=== PATIENT | male | born 1950 | race Caucasian/White ===

== ENCOUNTER 2018-09-14 12:00 | Outpatient (REF) | payer MEDICARE, SELFPAY ==
[2018-09-15 15:20] LABS: Chlamydia Result Negative; GC Result Negative; Specimen Description URINE
== END 2018-09-14 12:20 ==
LOC: NCHCN 12:00
PROVIDERS: PCP Nurse Practitioner Family; Visit Provider Nurse Practitioner Family
DX: Z20.2 Contact with and (suspected) exposure to infections with a predominantly sexual mode of transmission (principal); Z11.3 Encounter for screening for infections with a predominantly sexual mode of transmission
CPT/HCPCS: 87491; 87591

== ENCOUNTER 2018-11-17 12:52 | Outpatient (REF) | payer MEDICARE, SELFPAY ==
[2018-11-17 19:54] LABS: Abs Immature Grans 0.01 k/cumm (0.0-0.09); Absolute Basophil Count 0.05 k/cumm (0.0-0.2); Absolute Eosinophil Count 0.13 k/cumm (0.0-0.7); Absolute Lymphocyte Count 2.64 k/cumm (1.2-3.4); Absolute Monocyte Count 0.47 k/cumm (0.11-0.7); Basophils % 0.8; HCT 36.3 % (40.0-50.0); HGB 12.9 g/dL (13.5-17.5); Immature Grans % 0.2; Lymphocytes % 41.3; Mean Corp. HGB Concentration 35.5 g/dL (32.0-36.0); Mean Platelet Volume 10.6 fL (8.0-11.0); Monocytes % 7.3; Neutrophils % 48.4; Platelet Count 221 x1000/uL (130-400); RBC 3.49 m/cumm (4.50-6.00)
[2018-11-17 20:32] LABS: ALT 24 U/L (12-78); AST 24 U/L (15-37); Albumin 3.8 g/dL (3.4-5.0); Alkaline Phosphatase 67 U/L (46-116); BUN 20 mg/dL (7-18); Bilirubin, Total 0.6 mg/dL (0.2-1.0); CREATININE 1.16 mg/dL (0.70-1.30); Chloride 105 mmol/L (98-107); Glucose 87 mg/dL (70-100); Potassium 5.1 mmol/L (3.5-5.1); Sodium 141 mmol/L (136-145); TSH (W/Ref FT4) 0.37 uIU/mL (0.358-3.74); Total Protein 7.3 g/dL (6.4-8.2); Vitamin B12 461 pg/mL (193-986)
[2018-11-21 12:48] LABS: Testosterone, Free 6.34 ng/dL (3.47-13.0); Testosterone, Total 488 ng/dL (240-950)
== END 2018-11-17 13:12 ==
LOC: NCHCN 12:52
PROVIDERS: PCP Nurse Practitioner Family; Visit Provider Nurse Practitioner Family
DX: F32.9 Major depressive disorder, single episode, unspecified (principal); F41.1 Generalized anxiety disorder; F15.20 Other stimulant dependence, uncomplicated; Z86.19 Personal history of other infectious and parasitic diseases; F52.21 Male erectile disorder
CPT/HCPCS: 80053; 84402; 84403; 82607; 84443; 85025

== ENCOUNTER 2018-12-28 16:34 | Outpatient (REF) | payer MEDICARE, SELFPAY ==
[2018-12-28 19:21] LABS: Iron 75 ug/dL (50-175); Total Iron Binding Capacity 270 ug/dL (250-450); Transferrin Sat 28 % (20-55)
== END 2018-12-28 16:54 ==
LOC: NCHCN 16:34
PROVIDERS: PCP Nurse Practitioner Family; Visit Provider Nurse Practitioner Family
DX: D64.9 Anemia, unspecified (principal)
CPT/HCPCS: 83540; 83550

== ENCOUNTER 2019-06-24 12:36 | Outpatient (REF) | payer MEDICARE, SELFPAY ==
[2019-06-24 15:33] LABS: Calculated LDL 98 mg/dL; Cholesterol 154 mg/dL (50-200); HDL Cholesterol 37 mg/dL (40-60); Triglyceride 96 mg/dL (30-150)
== END 2019-06-24 12:56 ==
LOC: NCHCN 12:36
PROVIDERS: PCP Nurse Practitioner Family; Visit Provider Nurse Practitioner Family
DX: E78.5 Hyperlipidemia, unspecified (principal)
CPT/HCPCS: 80061

== ENCOUNTER 2020-01-09 00:35 | Outpatient (CLI) | payer OTHER, SELFPAY ==
--- NOTE | 2020-01-09 | DI.CT_ITS ---
EXAM: CT CHEST W CLINICAL HISTORY: MULTIPLE LUNG NODULES, R91.8, TOBACCO USE DISORDER, F17.209 TECHNIQUE: Imaging Protocol: Axial computed tomography images with coronal and sagittal reformatted images were created and reviewed CONTRAST MATERIAL: Intravenous: Omnipaque 350 Contrast volume:70 mL. COMPARISON: CHEST WITHOUT CONTRAST from 05/12/2017 FINDINGS: Tracheobronchial tree: Patent where visualized. Mediastinum and Fely: There are mildly enlarged lymph nodes seen in the mediastinum, which do not ayala t the criteria for pathologically enlarged. Pulmonary parenchyma: There is dependent atelectasis. Emphysematous changes are present in the lungs . There are stable pulmonary nodules present. Some of the nodules are calcified. No new pulmonary nodules are present. No focal consolidating infiltrates are present. There is unchanged pleural thi ckening posteriorly. Pleura: No effusion or pneumothorax. Heart: The heart is not dilated. Moderate coronary artery calcifications are present. No pericardial effusion. Aorta: Ascending thoracic aortic aneurysm measuring 4.8 cm. Atherosclerosis. Upper abdomen: Unremarkable. Lymph nodes: Please see above Bones: Degenerative changes. IMPRESSION: 1. Stable pulmonary nodules. 2. Aneurysmal dilatation of the ascending thoracic aorta. 3. Emphysema. DATA REPOSITORY: All CT scans at this facility are submitted to the National Radiology Data Registry (NRDR) Dose Index Registry (DIR) with the [employer] (ACR). RADIATION OPTIMIZATION: All CT scans at this facility use at least one of these dose optimization te chniques: automated exposure control; mA and/or kV adjustment per patient size (includes targeted exa ms where dose is matched to clinical indication); or iterative reconstruction.
[2020-01-09] MEDS: Omnipaque 350 MG/ML 100 ML BTL IJ (14:20)
[2020-01-09] MEDS: Normal Saline - Diluent 50 ML VIAL IV (14:22)
== END 2020-01-09 00:55 ==
PROVIDERS: PCP Nurse Practitioner Family; Visit Provider Nurse Practitioner Family
DX: R91.8 Other nonspecific abnormal finding of lung field (principal); F17.200 Nicotine dependence, unspecified, uncomplicated; J43.9 Emphysema, unspecified; I71.4 Abdominal aortic aneurysm, without rupture
CPT/HCPCS: 71260; J3490

== ENCOUNTER 2020-01-25 00:43 | Outpatient (CLI) | payer OTHER, SELFPAY ==
--- NOTE | 2020-01-25 | DI.US_ITS ---
APPROVED REPORT EXAM: Comprehensive 2D, Doppler, and color-flow Echocardiogram Patient Location: Out-Patient Performance Makeup Artist: Lizbeth Webster RDCS (AE) Indications: Thoracic Aortic Aneurysm on CT Conclusion Normal left ventricular chamber size and wall thickness. Estimated ejection fraction is 55%. There are no segmental wall motion abnormalities There is no chamber enlargement Aortic valve is mildly sclerotic and trileaflet. There is no aortic stenosis. There is trace aortic regurgitation. Mitral and tricuspid valves are structurally normal. There is mild to moderate mitral regurgitation. There is mild tricuspid regurgitation. The pulmonic valve is not well visualized The aortic root is mildly dilated measuring 3.8 cm. The ascending aorta is mildly to moderately dila maria elena measuring 4.2 cm Wall motion Left Ventricle The left ventricle is normal size. Left ventricular systolic function is borderline. There is normal left ventricular wall thickness. Regional wall motion is grossly normal. The left ventricular diastol ic function is normal. There is no ventricular septal defect visualized. LVEF is 55%. Right Ventricle The right ventricle is normal size. The right ventricular systolic function is normal. Atria The left atrium size is normal. The right atrium size is normal. The interatrial septum is intact wit h no evidence for an atrial septal defect. Aortic Valve The Aortic valve is sclerotic. Aortic valve is trileaflet. There is no aortic valvular stenosis. Trac e aortic regurgitation. Mitral Valve The mitral valve is normal in structure. No evidence of mitral valve stenosis. Mild to moderate yong l regurgitation. Tricuspid Valve The tricuspid valve is normal in structure. There is no tricuspid valve stenosis. Mild tricuspid regu rgitation. Pulmonic Valve Pulmonic valve is not well visualized. There is no pulmonic valvular stenosis. There is no pulmonic v alvular regurgitation. Great Vessels Aortic root is mildly dilated.3.8 cm The ascending aorta is moderately dilated. The ascending aorta i s mildly dilated.4.2 cm IVC is normal in size and collapses >50% with inspiration. Pericardium There is no pericardial effusion. 2D Dimensions IVSD d PLAX 0.81 cm M: 0.6-1.2 LV Vol A2C d MOD 162.2 mL LVPW d PLAX 0.81 cm M: 0.6 - 1.2 LV Vol A4C d MOD 137.5 mL LVID d PLAX 5.18 cm M: 4.2 - 5.8 LA vol/ BSA A2C s A-L 35.7 mL/m2 LVDs 3.85 cm M: 2.5 - 4.0 LA vol/ BSA A4C s A-L 36.2 mL/m2 Ao Root d 3.96 cm M: 3.1 - 3.7 LA Vol/ BSA Biplane s A-L 38.3 mL/m2 RA Area A4C 16.91 cm2 LA Area A4C s MOD 21.92 cm2 RA Vol/ BSA A4C s A-L 25.4 mL/m2 LA Area A2C s MOD 20.44 cm2 Ao Asc Diam d 4.03 cm M: 2.6 - 3.4 LV EF A4C MOD 45.8 % LV EF Teichholz 49.7 % LV EF A2C MOD 49.4 % LVEF (Koroma's) 46.76 % M: 52 - 72 LV EF Biplane MOD 46.8 % LV Volume 111.84 mL M: 62 - 150 LV Volume Index 55.92 mL/m2 M: 34 - 74 LV Vol Biplane MOD 149.2 mL FS 25.35 % M-Mode TAPSE 2.41 cm (M/F) <1.7 LV Diastology MV E' medial 0.076 (>0.07 m/s) E/A Ratio 1.2 LV E/e MED 9.25 (<14) MV E Vmax 0.71 (0.4-1.3 m/s) MV E' lateral 0.090 (>0.1 m/s) MV A Vmax 0.60 (0.4-1.3 m/s) LV E/e LAT 7.85 (<14) MV E/A Ratio 1.15 MV E/E' medial 9.29 MV E/E' lateral 7.88 Aortic Valve LVOT Area 3.37 cm2 AoV Area Vmax 2.32 cm2 LVOT Vmax 0.99 m/s AoV Area/ BSA (Vmax) 1.16 cm2/m2 LVOT Mean Dev. 0.62 m/s REHANA Mean Dev. 2.17 cm2 LVOT Peak Grad 3.9 mmHg REHANA Mean Dev. Index 1.09 cm2/m2 LVOT Mean Grad 1.8 mmHg AR DT 2184 msec LVOT VTI 0.249 m AR PHT 633 msec LVOT Diam s 2.05 cm (M/F) 1.5-2.5 AoV Vmax 1.43 (0.5-1.3 m/s) Velocity Ratio 0.69 AoV Mean Dev. 0.96 m/s AoV Peak Grad 8.2 mmHg LVOT SV 83.95 mL AoV Mean Grad 4.1 (<5 mmHg) AoV VTI 0.310 (0.18-0.25 m) AoV Area VTI 2.71 (2.5-4.5 cm2) AoV Area/ BSA (VTI) 1.35 cm/m2 Mitral Valve MV DT 201 (160-240 msec) MR Vmax 4.99 m/s MV PHT 58 msec MR VTI 1.861 m MV Area PHT 3.77 cm2 MR Peak Grad 99.5 mmHg MR Mean Grad 77.6 mmHg MR PISA Radius 0.52 cm MR EROA 0.12 cm2 MR Aliasing Velocity 0.35 m/s MR PISA 1.69 cm2 Pulmonary Valve PV Vmax 0.85 (0.5-1.5 m/s) RVOT Peak Gr. 0.98 mmHg PV Peak Grad 2.9 mmHg RVOT Mean Gr. 0.60 mmHg PV Mean Grad 1.7 mmHg RVOT VTI 0.132 m PV VTI 0.208 m RVOT Vmax 0.50 m/s Tricuspid Valve TR Peak Grad 28.1 mmHg TR Vmax 2.65 m/s RA Pressure 3.00 mmHg RVSP (TR) 31.1 mmHg
== END 2020-01-25 01:03 ==
PROVIDERS: PCP Nurse Practitioner Family; Visit Provider Physician Assistant
DX: I71.2 Thoracic aortic aneurysm, without rupture (principal); I35.8 Other nonrheumatic aortic valve disorders; I34.0 Nonrheumatic mitral (valve) insufficiency
CPT/HCPCS: 93306

== ENCOUNTER → 2020-03-13 15:20 | Outpatient (BNVA) | payer OTHER, SELFPAY | PROVIDERS: PCP Nurse Practitioner Family; Referring Provider Nurse Practitioner Family; Visit Provider Internal Medicine Cardiovascular Disease | DX: I77.89 Other specified disorders of arteries and arterioles (principal); I25.10 Atherosclerotic heart disease of native coronary artery without angina pectoris; I10 Essential (primary) hypertension | CPT/HCPCS: 99204; 99443 ==

== ENCOUNTER 2020-05-08 08:28 | Outpatient (REF) | payer OTHER, SELFPAY ==
[2020-05-08 20:36] LABS: ALT 26 U/L (16-63); AST 22 U/L (15-37); Alkaline Phosphatase 72 U/L (46-116); Anion Gap 8.1 mmol/L (3-11); BUN 29 mg/dL (7-18); Bilirubin, Total 0.4 mg/dL (0.2-1.0); CO2 27.9 mmol/L (21.0-32.0); CREATININE 1.54 mg/dL (0.70-1.30); Calcium 9.2 mg/dL (8.5-10.1); Calculated LDL 89 mg/dL (<100); Chloride 104 mmol/L (98-107); Cholesterol 148 mg/dL (<200); Estimated GFR 45.01 (mL/min/1.73m2); Glucose 88 mg/dL (74-106); HDL Cholesterol 38 mg/dL (40-60); Potassium 5.1 mmol/L (3.5-5.1); Sodium 140 mmol/L (136-145); TSH 0.64 uIU/mL (0.36-3.74); Total Protein 7.5 g/dL (6.4-8.2); Triglyceride 106 mg/dL (<150)
[2020-05-08 20:45] LABS: HGB 12.8 g/dL (13.5-17.5); Mean Corpuscular Hemoglobin 33.7 pg (27.0-33.0); Mean Corpuscular Volume 105.3 fL (80-95); Platelet Count 244 x1000/uL (130-400); RBC Distribution Width 12.9 % (11.8-14.1); White Blood Cell Count 8.92 k/cumm (4.4-10.8)
[2020-05-10 09:10] LABS: PSA, Screening 0.6 ng/mL (0.0-4.5)
== END 2020-05-08 08:48 ==
LOC: NCHCN 08:28
PROVIDERS: PCP Nurse Practitioner Family; Visit Provider Physician Assistant
DX: I10 Essential (primary) hypertension (principal); E03.9 Hypothyroidism, unspecified; E78.5 Hyperlipidemia, unspecified; Z12.5 Encounter for screening for malignant neoplasm of prostate
CPT/HCPCS: 80053; 80061; 84153; 85027; 84443

== ENCOUNTER 2020-09-12 13:47 | Outpatient (CLI) | payer OTHER, SELFPAY ==
--- NOTE | 2020-09-12 10:34 | DI.US_ITS ---
APPROVED REPORT EXAM: Comprehensive 2D, Doppler, and color-flow Echocardiogram Patient Location: Out-Patient Diamond Cleaner: Lizbeth Webster RDCS (AE) Indications: HTN, Thoracic aortic aneurysm Other Information Study Quality: Adequate Conclusion Normal left ventricular wall thickness and chamber size. Estimated ejection fraction is 55 to 60%. There are no segmental wall motion abnormalities Normal right ventricular size and systolic function Both atria are normal in size There are no structural valvular abnormalities Trace pulmonic and aortic regurgitation Mild mitral and tricuspid regurgitation. Normal estimated right ventricular systolic pressure Mildly dilated ascending aorta measuring 4.36 cm Wall motion Left Ventricle The left ventricle is normal size. The left ventricular systolic function is normal. The left ventric ular ejection fraction is within the normal range. There is normal left ventricular wall thickness. T here is normal LV segmental wall motion. There is no ventricular septal defect visualized. LVEF is 55 %. Right Ventricle The right ventricle is normal size. The right ventricular systolic function is normal. The RVSP is 29 .9mmHg. Atria The left atrium size is normal. The right atrium size is normal. The interatrial septum is intact wit h no evidence for an atrial septal defect. Aortic Valve The aortic valve is normal in structure. Aortic valve is trileaflet. There is no aortic valvular sten osis. Trivial aortic regurgitation. Mitral Valve The mitral valve is normal in structure. No evidence of mitral valve stenosis. Mild mitral regurgitat ion. Tricuspid Valve The tricuspid valve is normal in structure. There is no tricuspid valve stenosis. Mild tricuspid regu rgitation. Pulmonic Valve The pulmonary valve is normal in structure. There is no pulmonic valvular stenosis. Trace pulmonic re gurgitation. Great Vessels The aortic root is normal in size. The ascending aorta is moderately dilated. Aortic arch is normal i n caliber. IVC is normal in size and collapses >50% with inspiration. Pericardium There is no pericardial effusion. 2D Dimensions IVSD d PLAX 0.89 cm M: 0.6-1.2 LV Vol A2C d MOD 125.8 mL LVPW d PLAX 0.89 cm M: 0.6 - 1.2 LV Vol A4C d MOD 165.7 mL LVID d PLAX 5.02 cm M: 4.2 - 5.8 LA vol/ BSA A2C s A-L 33.1 mL/m2 LVDs 3.60 cm M: 2.5 - 4.0 LA vol/ BSA A4C s A-L 28.9 mL/m2 Ao Root d 3.94 cm M: 3.1 - 3.7 LA Vol/ BSA Biplane s A-L 31.5 mL/m2 RA Area A4C 12.86 cm2 LA Area A4C s MOD 19.17 cm2 RA Vol/ BSA A4C s A-L 15.1 mL/m2 LA Area A2C s MOD 20.12 cm2 Ao Asc Diam d 4.36 cm M: 2.6 - 3.4 LV EF A4C MOD 55.7 % LV EF Teichholz 54.4 % LV EF A2C MOD 55.1 % LVEF (Koroma's) 54.48 % M: 52 - 72 LV EF Biplane MOD 54.5 % LV Volume 108.66 mL M: 62 - 150 SV 78.83 mL LV Volume Index 54.60 mL/m2 M: 34 - 74 SV Index 39.56 mL/m2 LV Vol Biplane MOD 144.7 mL FS 28.30 % M-Mode TAPSE 2.32 cm (M/F) >1.7 LV Diastology MV E' medial 0.069 (>0.07 m/s) E/A Ratio 1.2 LV E/e MED 10.35 (<14) MV E Vmax 0.72 (0.4-1.3 m/s) MV E' lateral 0.101 (>0.1 m/s) MV A Vmax 0.60 (0.4-1.3 m/s) LV E/e LAT 7.15 (<14) MV E/A Ratio 1.13 MV E/E' medial 10.39 MV E/E' lateral 7.16 Aortic Valve LVOT Area 3.23 cm2 AoV Area Vmax 2.29 cm2 LVOT Vmax 1.01 m/s AoV Area/ BSA (Vmax) 1.15 cm2/m2 LVOT Mean Dev. 0.60 m/s REHANA Mean Dve. 2.05 cm2 LVOT Peak Grad 4.1 mmHg REHANA Mean Dev. Index 1.03 cm2/m2 LVOT Mean Grad 1.8 mmHg LVOT VTI 0.231 m LVOT Diam s 2.00 cm AoV Vmax 1.42 m/s Velocity Ratio 0.71 AoV Mean Dev. 0.95 m/s AoV Peak Grad 8.0 mmHg LVOT SV 74.52 mL AoV Mean Grad 4.1 mmHg AoV VTI 0.295 m AoV Area VTI 2.53 cm2 AoV Area/ BSA (VTI) 1.27 cm/m2 Mitral Valve MV DT 259 (160-240 msec) MV PHT 75 msec MV Area PHT 2.93 cm2 MV VTI 0.205 m MV Area VTI 3.64 (4.0-6.0 cm2) Pulmonary Valve PV Vmax 0.99 (0.5-1.5 m/s) RVOT Peak Gr. 1.31 mmHg PV Peak Grad 4.0 mmHg RVOT Mean Gr. 0.75 mmHg PV Mean Grad 2.2 mmHg RVOT VTI 0.150 m PV VTI 0.238 m RVOT Vmax 0.57 m/s Tricuspid Valve TR Peak Grad 26.8 mmHg TR Vmax 2.59 m/s RA Pressure 3.00 mmHg RVSP (TR) 29.9 mmHg
== END 2020-09-12 14:07 ==
PROVIDERS: PCP Nurse Practitioner Family; Visit Provider Physician Assistant
DX: I08.1 Rheumatic disorders of both mitral and tricuspid valves (principal)
CPT/HCPCS: 93306

== ENCOUNTER 2020-09-18 11:14 | Outpatient (REF) | payer OTHER, SELFPAY ==
[2020-09-18 19:42] LABS: Anion Gap 5.6 mmol/L (3-11); BUN 28 mg/dL (7-18); CO2 29.4 mmol/L (21.0-32.0); CREATININE 1.75 mg/dL (0.70-1.30); Calcium 9.5 mg/dL (8.5-10.1); Chloride 101 mmol/L (98-107); Estimated GFR 38.84 (mL/min/1.73m2); Glucose 90 mg/dL (74-106); Potassium 4.9 mmol/L (3.5-5.1); Sodium 136 mmol/L (136-145)
== END 2020-09-18 11:34 ==
LOC: NCHCN 11:14
PROVIDERS: PCP Nurse Practitioner Family; Visit Provider Physician Assistant
DX: I10 Essential (primary) hypertension (principal)
CPT/HCPCS: 80048

== ENCOUNTER 2020-10-15 21:17 | Outpatient (REF) | payer OTHER, SELFPAY ==
[2020-10-15 14:06] LABS: Anion Gap 7.8 mmol/L (3-11); BUN 25 mg/dL (7-18); CO2 28.2 mmol/L (21.0-32.0); CREATININE 1.71 mg/dL (0.70-1.30); Calcium 9.3 mg/dL (8.5-10.1); Chloride 102 mmol/L (98-107); Estimated GFR 39.89 (mL/min/1.73m2); Glucose 91 mg/dL (74-106); Potassium 4.7 mmol/L (3.5-5.1); Sodium 138 mmol/L (136-145)
[2020-10-16 09:53] LABS: HIV-1/2 Ag & Ab Screen Negative (Negative)
== END 2020-10-15 21:37 ==
LOC: NCHCN 21:17
PROVIDERS: PCP Nurse Practitioner Family; Visit Provider Physician Assistant
DX: N28.9 Disorder of kidney and ureter, unspecified (principal); Z11.4 Encounter for screening for human immunodeficiency virus [HIV]; Z11.3 Encounter for screening for infections with a predominantly sexual mode of transmission
CPT/HCPCS: 80048; 87389

== ENCOUNTER 2020-11-02 04:40 | Outpatient (CLI) | payer OTHER, SELFPAY ==
--- NOTE | 2020-11-02 | DI.US_ITS ---
EXAM: US RENAL CLINICAL HISTORY: RENAL INSUFFICIENCY, N28.9. TECHNIQUE: Arnold scale, color and spectral Doppler were used. COMPARISON: CT CT CHEST W from 01/09/2020 FINDINGS: Renal size in cm: Right: 10.7. Left: 10.6. Echogenicity: Normal. Hydronephrosis: No. Cyst or mass: No. Nephrolithiasis: No. Other findings: No findings to suggest renal cortical atrophy. Bladder:Incompletely distended. There is apparent thickening of the wall of the urinary bladder. Th is may be due to incomplete distension of the urinary bladder. Ureteral jets: Right: Visualized and unremarkable. Left: Visualized and unremarkable. Prevoid vol:10.5 cc Postvoid vol:2.4 cc Prostate: 22 cc Renal color flow: Symmetric and within normal limits. IMPRESSION: 1. Unremarkable kidneys. No evidence of hydronephrosis or renal mass. 2. Evaluation of the urinary bladder is severely limited due to lack of distension. The apparent thi ckening of the wall of the urinary bladder may be due to the incomplete distention. If there is clin ical concern for bladder abnormality, repeat examination with a fully distended bladder should be con sidered. DATA REPOSITORY:
== END 2020-11-02 05:00 ==
PROVIDERS: PCP Physician Assistant; Visit Provider Physician Assistant
DX: N28.89 Other specified disorders of kidney and ureter (principal)
CPT/HCPCS: 76770

== ENCOUNTER 2021-01-15 19:56 | Outpatient (REF) | payer OTHER, SELFPAY ==
[2021-01-15 19:59] LABS: Anion Gap 9.8 mmol/L (3-11); BUN 31 mg/dL (7-18); CO2 26.2 mmol/L (21.0-32.0); CREATININE 1.6 mg/dL (0.70-1.30); Calcium 9.7 mg/dL (8.5-10.1); Chloride 102 mmol/L (98-107); Estimated GFR 43.07 (mL/min/1.73m2); Glucose 95 mg/dL (74-106); Potassium 5.8 mmol/L (3.5-5.1); Sodium 138 mmol/L (136-145)
== END 2021-01-15 19:57 | disposition home or self-care (01) ==
LOC: NCHCN 19:56
PROVIDERS: PCP Physician Assistant; Visit Provider Physician Assistant
DX: N28.9 Disorder of kidney and ureter, unspecified (principal)
CPT/HCPCS: 80048

== ENCOUNTER 2021-07-11 10:07 | Outpatient (REF) | payer OTHER, SELFPAY ==
[2021-07-11 14:33] LABS: BUN 19 mg/dL (7-18); CREATININE 1.6 mg/dL (0.70-1.30); Calcium 9.1 mg/dL (8.5-10.1); Chloride 106 mmol/L (98-107); Estimated GFR 42.95 (mL/min/1.73m2); Glucose 106 mg/dL (74-106); Potassium 5.1 mmol/L (3.5-5.1); Sodium 142 mmol/L (136-145); TSH (W/Ref FT4) 67.92 uIU/mL (0.36-3.74)
[2021-07-11 14:58] LABS: FREE T4 0.28 ng/dL (0.76-1.46)
== END 2021-07-11 10:08 | disposition home or self-care (01) ==
LOC: NCHCN 10:07
PROVIDERS: PCP Physician Assistant; Referring Provider Physician Assistant; Visit Provider Physician Assistant
DX: E03.9 Hypothyroidism, unspecified (principal); I10 Essential (primary) hypertension
CPT/HCPCS: 80048; 84439; 84443

== ENCOUNTER → 2021-08-15 02:01 | Outpatient (CLI) | payer OTHER, SELFPAY ==
--- NOTE | 2021-08-15 | DI.CTLCSR_ITS ---
Exam(s) CT CHEST LUNG CANCER SCREEN EXAM: CT CHEST LUNG CANCER SCREEN CLINICAL HISTORY: SCREENING FOR LUNG SCREENING, SMOKER, F17.209. TECHNIQUE: Imaging Protocol: Low Dose Technique CONTRAST MATERIAL: None COMPARISON: CT CHEST WITHOUT CONTRAST from 05/12/[address] CHEST W from 01/09/2020 FINDINGS: CHEST: LUNGS: The previously described multiple bilateral pulmonary nodules, both calcified and noncalcified , continue to appear unchanged and there are no new ominous pulmonary nodules nor pleural effusions. In addition, multilevel pleural thickening posteriorly is also unchanged. Emphysematous changes at 12 pulmonary fibrosis again noted. MEDIASTINUM: Minimally prominent mediastinal lymph nodes are unchanged from prior. No new lymphadeno joan. CARDIAC: Heart size is normal. There is no pericardial effusion.Dilated ascending thoracic aorta is again noted which exhibits diameter 4.4 cm, unchanged OTHER: OSSEOUS: No new significant osseous lesions.. IMPRESSION: 1. Continued stability of the multiple bilateral calcified and noncalcified pulmonary nodules. No ne w nodules nor pleural effusions nor new intrathoracic adenopathy. Pulmonary fibrosis and emphysematous changes again noted 2. Aneurysmal dilatation of the ascending thoracic aorta again noted, measuring 4.4 cm. 3. Lung RADS Cat 2 - Benign Appearance / Behavior: Nodules with a very low likelihood of becoming a c linically active cancer due to size or lack of growth Lung-RADS 1.0 CATEGORIES: Category 0 - Prior chest CT exam(s) being located for comparison. Category 1 - Annual screening in 12 months. No nodules or definitely benign nodules. Category 2 - Annual screening in 12 months. Benign appearance. Nodules with low likelihood of becomin g active cancer. Category 3 - 6-month follow-up. Probably benign. Short-term follow-up suggested. Nodules with low lik elihood of becoming active cancer. Category 4A - 3-month follow-up and CT/PET if >8 mm in size. Suspicious finding. Findings which requi re additional testing. Category 4B - Findings which require additional testing and tissue sampling. Modifier S- Potentially clinically significant findings (non lung cancer) RADIATION DOSE DELIVERED: 82.79mGy.cm Total DLP 1.84mGy CTDIvol DATA REPOSITORY: All CT scans at this facility are submitted to the National Radiology Data Registry (NRDR) Dose Index Registry (DIR) with the [employer] (ACR). RADIATION OPTIMIZATION: All CT scans at this facility use at least one of these dose optimization te chniques: automated exposure control; mA and/or kV adjustment per patient size (includes targeted exa ms where dose is matched to clinical indication); or iterative reconstruction.
--- NOTE | 2021-08-15 | DI.US_ITS ---
APPROVED REPORT EXAM: Comprehensive 2D, Doppler, and color-flow Echocardiogram Patient Location: Out-Patient [employer] Managing Editor: Lizbeth Webster RDCS (AE) Indications: Thoracic aortic aneurysm Other Information Study Quality: Adequate Conclusion Normal left ventricular wall thickness and chamber size. Estimated ejection fraction is 55 to 60%. There are no segmental wall motion abnormalities Normal right ventricular size and systolic function Both atria are normal in size Trileaflet aortic valve without stenosis or regurgitation Mildly thickened mitral leaflets with mild regurgitation Normal tricuspid valve with mild regurgitation. Estimated right ventricular systolic pressure is 28 mmHg Mildly dilated aortic root, 3.9 cm. Moderately dilated ascending aorta, 4.29 cm Wall motion Left Ventricle The left ventricle is normal size. The left ventricular systolic function is normal. The left ventric ular ejection fraction is within the normal range. There is normal left ventricular wall thickness. T here is normal LV segmental wall motion. There is no ventricular septal defect visualized. LVEF is 58 %. Right Ventricle The right ventricle is normal size. The right ventricular systolic function is normal. The RVSP is 28 .1 mmHg. Atria The left atrium size is normal. The right atrium size is normal. The interatrial septum is intact wit h no evidence for an atrial septal defect. Aortic Valve The aortic valve is normal in structure. Aortic valve is trileaflet. There is no aortic valvular sten osis. No aortic regurgitation is present. Mitral Valve Mitral valve leaflets are mildly thickened. No evidence of mitral valve stenosis. Mild mitral regurgi tation. Tricuspid Valve The tricuspid valve is normal in structure. There is no tricuspid valve stenosis. Mild tricuspid regu rgitation. Pulmonic Valve The pulmonary valve is normal in structure. There is no pulmonic valvular stenosis. Trace pulmonic re gurgitation. Great Vessels Aortic root is mildly dilated.3.9 cm The ascending aorta is moderately dilated.4.29 cm Aortic arch is normal in caliber. IVC is normal in size and collapses >50% with inspiration. Pericardium There is no pericardial effusion. 2D Dimensions IVSD d PLAX 1.04 cm M: 0.6-1.2 LV Vol A2C d MOD 131.1 mL LVPW d PLAX 1.02 cm M: 0.6 - 1.2 LV Vol A4C d MOD 136.8 mL LVID d PLAX 4.91 cm M: 4.2 - 5.8 LA vol/ BSA A2C s A-L 35.7 mL/m2 LVDs 3.50 cm M: 2.5 - 4.0 LA vol/ BSA A4C s A-L 33.8 mL/m2 Ao Root d 3.90 cm M: 3.1 - 3.7 LA Vol/ BSA Biplane s A-L 35.1 mL/m2 RA Area A4C 13.66 cm2 LA Area A4C s MOD 20.39 cm2 RA Vol/ BSA A4C s A-L 17.1 mL/m2 LA Area A2C s MOD 21.14 cm2 Ao Asc Diam d 4.29 cm M: 2.6 - 3.4 LV EF A4C MOD 56.4 % LV EF Teichholz 54.5 % LV EF A2C MOD 59.0 % LVEF (Koroma's) 57.33 % M: 52 - 72 LV EF Biplane MOD 57.3 % LV Volume 100.65 mL M: 62 - 150 SV 76.84 mL LV Volume Index 50.57 mL/m2 M: 34 - 74 SV Index 38.56 mL/m2 LV Vol Biplane MOD 134.0 mL FS 28.30 % M-Mode TAPSE 2.48 cm (M/F) >1.7 LV Diastology MV E' medial 0.087 (>0.07 m/s) E/A Ratio 1.2 LV E/e MED 10.05 (<14) MV E Vmax 0.87 (0.4-1.3 m/s) MV E' lateral 0.110 (>0.1 m/s) MV A Vmax 0.70 (0.4-1.3 m/s) LV E/e LAT 7.90 (<14) MV E/A Ratio 1.19 MV E/E' medial 10.07 MV E/E' lateral 7.94 Aortic Valve LVOT Area 3.66 cm2 AoV Area Vmax 2.69 cm2 LVOT Vmax 1.03 m/s AoV Area/ BSA (Vmax) 1.35 cm2/m2 LVOT Mean Dev. 0.60 m/s REHANA Mean Dev. 2.46 cm2 LVOT Peak Grad 4.2 mmHg REHANA Mean Dev. Index 1.23 cm2/m2 LVOT Mean Grad 1.8 mmHg LVOT VTI 0.219 m LVOT Diam s 2.15 cm AoV Vmax 1.40 m/s Velocity Ratio 0.73 AoV Mean Dev. 0.89 m/s AoV Peak Grad 7.8 mmHg LVOT SV 80.00 mL AoV Mean Grad 3.7 mmHg AoV VTI 0.291 m AoV Area VTI 2.75 cm2 AoV Area/ BSA (VTI) 1.38 cm/m2 Mitral Valve MV DT 191 (160-240 msec) MV PHT 55 msec MV Area PHT 3.98 cm2 MV VTI 0.385 m MV Area VTI 2.08 (4.0-6.0 cm2) Pulmonary Valve PV Vmax 1.13 (0.5-1.5 m/s) RVOT Peak Gr. 2.15 mmHg PV Peak Grad 5.1 mmHg RVOT Mean Gr. 1.15 mmHg PV Mean Grad 2.4 mmHg RVOT VTI 0.180 m PV VTI 0.233 m RVOT Vmax 0.73 m/s Tricuspid Valve TR Peak Grad 25.1 mmHg TR Vmax 2.51 m/s RA Pressure 3.00 mmHg RVSP (TR) 28.1 mmHg
== END ==
PROVIDERS: PCP Physician Assistant; Visit Provider Physician Assistant
DX: I08.1 Rheumatic disorders of both mitral and tricuspid valves (principal); I71.2 Thoracic aortic aneurysm, without rupture; Z12.2 Encounter for screening for malignant neoplasm of respiratory organs; F17.210 Nicotine dependence, cigarettes, uncomplicated; R91.8 Other nonspecific abnormal finding of lung field; J84.10 Pulmonary fibrosis, unspecified
CPT/HCPCS: 71271; 93306

== ENCOUNTER 2021-11-19 15:21 | Outpatient (REF) | payer OTHER, SELFPAY ==
[2021-11-19 17:15] LABS: ALT 23 U/L (16-63); AST 28 U/L (15-37); Albumin 4.2 g/dL (3.4-5.0); Alkaline Phosphatase 54 U/L (46-116); Anion Gap 10.1 mmol/L (3-11); BUN 30 mg/dL (7-18); Bilirubin, Total 0.7 mg/dL (0.2-1.0); CO2 25.9 mmol/L (21.0-32.0); CREATININE 1.4 mg/dL (0.70-1.30); Calcium 8.7 mg/dL (8.5-10.1); Chloride 101 mmol/L (98-107); Glucose 84 mg/dL (74-106); Potassium 4.8 mmol/L (3.5-5.1); Sodium 137 mmol/L (136-145); TSH 14.79 uIU/mL (0.36-3.74); Total Protein 7.5 g/dL (6.4-8.2)
== END 2021-11-19 15:22 | disposition home or self-care (01) ==
LOC: NCHCN 15:21
PROVIDERS: PCP Physician Assistant; Visit Provider Physician Assistant
DX: I10 Essential (primary) hypertension (principal); E03.9 Hypothyroidism, unspecified
CPT/HCPCS: 80053; 84443

== ENCOUNTER 2022-06-06 09:18 | Outpatient (REF) | payer MEDICARE, SELFPAY ==
[2022-06-06 15:45] LABS: ALT 18 U/L (16-63); AST 19 U/L (15-37); Albumin 3.8 g/dL (3.4-5.0); Alkaline Phosphatase 57 U/L (46-116); Anion Gap 7.3 mmol/L (3-11); BUN 19 mg/dL (7-18); Bilirubin, Total 0.3 mg/dL (0.2-1.0); CO2 28.7 mmol/L (21.0-32.0); CREATININE 1.3 mg/dL (0.70-1.30); Calculated LDL 80 mg/dL (<100); Chloride 104 mmol/L (98-107); Cholesterol 146 mg/dL (<200); Estimated GFR 54.42 (mL/min/1.73m2); Glucose 101 mg/dL (74-106); HDL Cholesterol 54 mg/dL (40-60); Potassium 4.9 mmol/L (3.5-5.1); Sodium 140 mmol/L (136-145); TSH 0.73 uIU/mL (0.36-3.74); Total Protein 7.5 g/dL (6.4-8.2); Triglyceride 60 mg/dL (<150)
[2022-06-06 16:04] LABS: HCT 38.2 % (40.0-50.0); HGB 12.1 g/dL (13.5-17.5); MCH 32.4 pg (27.0-33.0); MCV 102 fL (80-95); MPV 10.2 fL (8.0-11.0); Platelet Count 251 10^3/uL (130-400); RBC 3.74 10^6/uL (4.36-5.78); RDW 12.5 % (11.8-14.1); RDW-SD 47.1 fL; WBC 6.83 10^3/uL (4.4-10.8)
[2022-06-06 16:13] LABS: MCHC 31.7 % (32.0-36.0)
== END 2022-06-06 09:19 | disposition home or self-care (01) ==
LOC: NCHCN 09:18
PROVIDERS: PCP Physician Assistant; Visit Provider Physician Assistant
DX: E03.9 Hypothyroidism, unspecified (principal)
CPT/HCPCS: 80053; 80061; 85027; 84443

== ENCOUNTER → 2022-06-25 09:02 | Outpatient (BNVA) | payer MEDICARE, SELFPAY | PROVIDERS: PCP Physician Assistant; Referring Provider Physician Assistant; Visit Provider Surgery | DX: Z12.11 Encounter for screening for malignant neoplasm of colon (principal) ==

== ENCOUNTER 2022-07-10 08:27 | Day surgery (SDC) | payer MEDICARE, SELFPAY ==
--- NOTE | 2022-07-10 06:58 | ANES.PREOP_ITS ---
General Info Date of Service Date Performed: 07/10/22 Height: 5 ft 11 in Weight: 80.456 kg Body Mass Index (BMI): 24.7 Surgical Procedure: Operation Date: 07/10/22 10:35 Proposed Procedure Side Surgeon shila Hernandez MD Meds Allergies and Home Medications Allergies Allergy/AdvReac Type Severity Reaction Status Date / Time chloramphenicol Allergy Severe anaphylaxis Unverified 07/10/22 09:52 [From Chloromycetin] chloramphenicol sod succ Allergy Severe anaphylaxis Unverified 07/10/22 09:52 [From Chloromycetin] simvastatin AdvReac Severe myalgias Unverified 07/10/22 09:52 Home Medication Medication Instructions Recorded aspirin 325 mg tablet 325 mg PO DAILY 08/10/14 levothyroxine 150 mcg tablet 150 mcg PO DAILY 08/10/14 lisinopril 20 mg tablet 20 mg PO DAILY 08/10/14 mirtazapine 15 mg disintegrating 15 mg PO DAILY 08/10/14 tablet pregabalin 25 mg capsule (Lyrica) 25 mg PO BID 08/10/14 cholecalciferol (vitamin D3) 50 4,000 - 6,000 unit PO DAILY 08/19/14 mcg (2,000 unit) tablet ibuprofen 200 mg tablet 800 mg PO TID 08/19/14 multivitamin (Daily Vitamin tablet) 1 ea PO DAILY 08/19/14 duloxetine 30 mg capsule,delayed 90 mg PO DAILY 03/13/20 release amlodipine 10 mg tablet 10 mg PO DAILY 05/28/22 atorvastatin 10 mg tablet 10 mg PO QHS 05/28/22 methylphenidate HCl 20 mg tablet 20 mg PO BID 05/28/22 metoprolol succinate 50 mg 50 mg PO DAILY 05/28/22 tablet,extended release 24 hr tamsulosin 0.4 mg capsule (Flomax) 0.4 mg PO BID 05/28/22 tadalafil 5 mg tablet (Cialis) 5 mg PO DAILY 06/25/22 Current Visit Medications: Current Medications Generic Name Dose Route Start Last Admin Trade Name Freq PRN Reason Stop Dose Admin Ringer's Solution 1,000 mls @ 80 mls/hr 07/10/22 06:00 IV 08/08/22 23:59 [facility] IV Miscellaneous Supplies 1 each 07/10/22 06:00 Iv Access IV 08/08/22 23:59 DIRECTED DOLORES Sodium Chloride 0 ml 07/10/22 06:00 Normal Saline Flush 10 Ml Syr IV 08/08/22 23:59 PRN PRN Sodium Chloride 0 ml 07/10/22 06:00 Normal Saline 10 Ml Vial IJ 08/08/22 23:59 DIRECTED PRN Sterile Water 0 ml 07/10/22 06:00 Water,Injection,Sterile 10 Ml Vial IJ 08/08/22 23:59 DIRECTED PRN PFSH Active Problems Active Problems: Problem Status Onset Code CAD (coronary atherosclerotic disease) MO (myocardial infarction) Enlarged aorta I77.89 Screening for colon cancer Z12.11 Medical History Medical History Depression History of MO (myocardial infarction) 1999 Hyperlipidemia Hypertension Hypothyroidism Shingles Surgical History Surgical History Appendectomy Arthroplasty of knee pt. denies Colonoscopy - IV Sedation Coronary Stent x2 1999 & 2011. Per pt. f/u with cardiology but is no longer required to and f/u with PCP Dr. Astorga Tobacco Smoking/Tobacco Use Status: Current every day Tobacco Type: cigarettes Alcohol Alcohol Intake: current Alcohol intake frequency: 0-2 drinks per day Substance Use Substance use: Occasionally Substance use type: marijuana Vital Signs and Lab Results Lab Results Blood Type / Crossmatch: No Data to Display Complete Blood Count: No Data to Display Complete Metabolic Panel: No Data to Display Liver Function Panel: No Data to Display Coagulation Panel: No Data to Display Cardiac Panel: No Data to Display Arterial Blood Gas: No Data to Display Venous Blood Gas: No Data to Display Pancreas Panel: No Data to Display Thyroid Panel: No Data to Display Infectious Disease: No Data to Display Blood Cultures: No Data to Display Toxicology Panel: No Data to Display Anesthesia Assessment and Plan Anesthesia History Personal History: No History of Anesthesia Complications Family History: No Family History of Anesthesia Complications Exercise Tolerance Exercise Tolerance: Metabolic Equivalents>4 Pertinent Negatives Pertinent Negatives: No Symptoms of GERD, No Major Cardiovascular Symptoms or Complaints, No Major Pulmonary Symptoms or Complaints and No History of CVA/TIA Cardiac & Pulmonary Exam Cardiac Exam: Normal S1/S2 Heart Sounds Pulmonary Exam: Clear Bilateral Breath Sounds Implantable Cardiac Device Does patient have a Pacemaker or an ICD?: No Airway Exam Known Difficult Airway: No Mallampati Class: 4 Mouth Opening: Normal (> 3cm) Thyromental Distance: Greater than 3 cm Neck Range of Motion: Full ROM Neck Circumference: Normal Teeth Condition: Generalized Poor Dentition and Removable Dentures/Plates Upper ASA Classification ASA Score: ASA 2 Emergency Case?: No NPO Status NPO Status: NPO Clears >2 hours, Solids >8 hours Anesthesia Plan Resuscitation Status: Full Code Anesthesia Technique: General Anesthesia Airway Planned: Natural Airway Monitors Used: Standard Monitors Preoperative Comments:: Violation of NPO - per patient 2 oz at 0900. Juli. Discussed risk and continuing.
--- NOTE | 2022-07-10 08:35 | W.PM.DSUDISC ---
Discharge Plan Disposition Patient Disposition: HOME Condition: Good Discharge Details Attending Provider: Jim Hernandez Primary Care Provider: Mahad Astorga Home Meds and New Rx's Prescriptions: Continued duloxetine 30 mg capsule,delayed release(DR/EC) 90 mg PO DAILY tadalafil [Cialis] 5 mg tablet 5 mg PO DAILY aspirin 325 MG tablet 325 mg PO DAILY lisinopril 20 MG tablet 20 mg PO DAILY levothyroxine 150 MCG tablet 150 mcg PO DAILY mirtazapine 15 MG tablet,disintegrating 15 mg PO DAILY pregabalin [Lyrica] 25 MG capsule 25 mg PO BID multivitamin [Daily Vitamin] 1 EACH tablet 1 ea PO DAILY ibuprofen 200 MG tablet 800 mg PO TID cholecalciferol (vitamin D3) 2,000 UNIT tablet 4,000 - 6,000 unit PO DAILY metoprolol succinate 50 mg tablet extended release 24 hr 50 mg PO DAILY tamsulosin [Flomax] 0.4 mg capsule 0.4 mg PO BID atorvastatin 10 mg tablet 10 mg PO QHS methylphenidate HCl 20 mg tablet 20 mg PO BID amlodipine 10 mg tablet 10 mg PO DAILY Discontinued bisacodyl [Dulcolax (bisacodyl)] 5 mg tablet,delayed release (DR/EC) 5 mg PO ONCE Qty: 4 0RF Rx Instructions: Take according to provider's instructions for colonoscopy prep. polyethylene glycol 3350 17 gram/dose powder 17 g PO ONCE Qty: 238 0RF Rx Instructions: To be taken as directed by prescriber's office for colonoscopy prep. Discharge Instructions Instructions: Colonoscopy (DC) Additional Instructions: 1. If tolerated, consume a soft, low fiber diet for 1-2 days. [address] Do not drive, drink alcohol, operate machinery, make critical decisions, or do activities that require coordination or balance for 24 hours. 3. Because air was put into your colon during the procedure, expelling air from your rectum (passing gas or farting) is normal. 4. You may not have a bowel movement for 1-3 days because of the colonoscopy prep. This is normal. 5. Go directly to the emergency room if you notice any of the following: Develop chills (warm to touch), or if you have a thermometer and your temperature is above 101 Difficulty breathing or difficultly swallowing Persistent vomiting Severe abdominal pain, other than gas cramps Severe chest pain Black, tarry stools Any bleeding ? exceeding one tablespoon 6. Call your physician if the site where your intravenous was started becomes red, swollen, painful, and warm to touch. 7. Your physician has reviewed your pre-procedure medications. Please continue to take those medications as previously ordered. You will be given specific information/education regarding any changes to your medications before leaving. Activity:: Activity as Tolerated Diet:: As Tolerated Discharge Orders Discharge Orders: Discharge Order (Routine); Ordered 07/10/22 Ordered By: Jim Hernandez Discharge Data Discharge Comment: normal colo, next one 10 yrs DS: Diagnosis Discharge Diagnosis (1) Screening for colon cancer: Status: Acute Asessment and Plan: normal colonoscopy. Follow up in 10 years for your next one
[2022-07-10 09:53] VITALS: BP 136/74; PULSE 68; RESP 16; TEMP 36.7; O2SAT 100
[2022-07-10 10:47] VITALS: BMI 24.7
[2022-07-10] MEDS: Lactated Ringers 1,000 ML 80 ML IV (11:00)
[2022-07-10 11:48] VITALS: BP 123/48; PULSE 57; RESP 16; TEMP 36.5; O2SAT 98
--- NOTE | 2022-07-10 11:50 | W.COLOREPORT ---
Colonoscopy Report Date of procedure: 07/10/22 Pre-op diagnosis general: screening colonoscopy for routine health maintenance Post-op diagnosis procedure note: same Procedure: screening colonoscopy Surgeon: Jim Hernandez Anesthesia Type: General:No Airway Estimated blood loss (mL): 0 Pathology: none sent Complications: None Disposition: same day Indications: Compa is 72 years old and following up for his up to date screening colonoscopy for routine health maintenance Prep: Miralax/Dulcolax Procedure Start Time: 11:09 Procedure End Time: 11:43 Retraction Time: 24 Findings: normal colonoscopy Procedure Description: After the induction of monitored anesthetic care, and with the patient in left lateral decubitus position, I began by performing an external anorectal exam.? Perineum and skin were normal, as was the anal verge.? There was no evidence of external hemorrhoids.? Next, I performed a digital rectal exam.? I did not appreciate any abnormal findings.? Next, I advanced a colonoscope into the rectal vault.? I performed retroflexion.? I did not see signs of pathologic internal hemorrhoids.? Using insufflation, I then advanced the colonoscope beyond the rectal folds and into the sigmoid colon before advancing towards the cecum.? The quality of the prep was suboptimal, but I was able to irrigate clear for a satisfactory evaluation.? The scope was noted to be in the cecum by identification of the ileocecal valve and appendiceal orifice.? I then began withdrawing the colonoscope using repeated irrigation as necessary for full evaluation of the colonic mucosa. ?Once the scope was withdrawn to the level of the rectum, great care was taken to examine portions of the rectal folds.? Finally, the scope was withdrawn and the patient was brought to the same-day surgery recovery unit as the anesthetic wore off. ?The findings and instructions were shared with the patient prior to discharge.
[2022-07-10 12:20] VITALS: BP 139/75; PULSE 52; RESP 16; TEMP 36.3; O2SAT 98
--- NOTE | 2022-07-10 14:03 | W.ANESPOSTOP ---
Postoperative Evaluation Date, Time and Location Date Performed: 07/10/22 Time Performed: 14:03 Patient Location: Day Surgery Unit Vital Signs Most Recent Imported Vital Signs: Most Recent Vital Signs Temp Pulse Resp BP Pulse Ox 36.3 C L 52 L 16 139/75 98 07/10/22 12:20 07/10/22 12:20 07/10/22 12:20 07/10/22 12:20 07/10/22 12:20 Pain Score Most Recent Pain Score: Most Recent Pain Score Pain Level 0 07/10/22 12:20 Assessment Mental Status: Awake (Alert & Oriented to Patient Baseline) Airway and Respiratory Function: Patent airway with normal (patient baseline) respiratory exam Cardiovascular Function: Hemodynamically Stable Hydration Status: Adequately Hydrated Nausea & Vomiting: No Nausea or Vomiting Pain: Pt. Denies Any Pain Peripheral Nerve Block: Patient did not receive a nerve block
== END 2022-07-10 13:00 | disposition home or self-care (01) ==
PROVIDERS: PCP Physician Assistant; Visit Provider Surgery
PROC: 0DJD8ZZ Inspection of Lower Intestinal Tract, Via Natural or Artificial Opening Endoscopic (ICD-10-PCS; CPT 45378; principal; 2022-07-10 10:30)
DX: Z12.11 Encounter for screening for malignant neoplasm of colon (principal); I25.10 Atherosclerotic heart disease of native coronary artery without angina pectoris; F17.210 Nicotine dependence, cigarettes, uncomplicated
CPT/HCPCS: G0121

== ENCOUNTER → 2022-09-26 00:30 | Outpatient (CLI) | payer MEDICARE, SELFPAY ==
--- NOTE | 2022-09-26 | DI.CTLCSR_ITS ---
Exam(s) CT CHEST LUNG CANCER SCREEN EXAM: CT CHEST LUNG CANCER SCREEN CLINICAL HISTORY: CIGARETTE SMOKER F17.210 SCREENING FOR LUNG CANCER TECHNIQUE: Imaging Protocol: Axial computed tomography images with coronal and sagittal reformatted images were created and reviewed. Low dose screening protocol. COMPARISON: CT CHEST - LUNG CANCER SCREENING from 11/18/[address] CHEST LUNG CANCER SCREEN from 08/15/2021 FINDINGS: Tracheobronchial tree: No bronchiectasis or mucus plugging.. Mediastinum and Fely: No dominant adenopathy or fluid collection. Pulmonary parenchyma: Mildly limited evaluation due to mild respiratory motion. No consolidation or dominant measurable mass. Fibrotic and emphysematous changes. Lung Nodules: Scattered calcified nodules are again noted bilaterally. Stable nodules are seen at myriam th lung bases. The noncalcified nodules in the upper lobes on the 2017 exam are knots seen current L ea. Pleura: No effusion. No pneumothorax. Mild pleural plaques. Heart: The heart is not dilated. Moderate coronary artery calcifications are seen. Aorta: Ascending aorta 4.5 cm. Mild calcification. Upper abdomen: Unremarkable. Bones: Unremarkable for age. Soft Tissues: Unremarkable. IMPRESSION: Stable bilateral lower lobe pulmonary nodules. Lung RADS Cat 2 - Benign Appearance / Behavior: Nodules with a very low likelihood of becoming a clin ically active cancer due to size or lack of growth Lung-RADS 1.0 CATEGORIES: Category 0 - Prior chest CT exam(s) being located for comparison. Category 1 - Annual screening in 12 months. No nodules or definitely benign nodules. Category 2 - Annual screening in 12 months. Benign appearance. Nodules with low likelihood of becomin g active cancer. Category 3 - 6-month follow-up. Probably benign. Short-term follow-up suggested. Nodules with low lik elihood of becoming active cancer. Category 4A - 3-month follow-up and CT/PET if >8 mm in size. Suspicious finding. Findings which requi re additional testing. Category 4B - Findings which require additional testing and tissue sampling. Category 4X - Category 3 or 4 nodules with additional features or imaging findings that increases the suspicion of malignancy. Modifier S- Potentially clinically significant findings (non lung cancer) RADIATION DOSE DELIVERED: 84.91mGy.cm Total DLP 1.84mGy!Error CTDIvol DATA REPOSITORY: All CT scans at this facility are submitted to the National Radiology Data Registry (NRDR) Dose Index Registry (DIR) with the [employer] (ACR). RADIATION OPTIMIZATION: All CT scans at this facility use at least one of these dose optimization te chniques: automated exposure control; mA and/or kV adjustment per patient size (includes targeted exa ms where dose is matched to clinical indication); or iterative reconstruction.
== END ==
PROVIDERS: PCP Physician Assistant; Visit Provider Physician Assistant
DX: F17.210 Nicotine dependence, cigarettes, uncomplicated (principal); Z12.2 Encounter for screening for malignant neoplasm of respiratory organs; R91.8 Other nonspecific abnormal finding of lung field
CPT/HCPCS: 71271

== ENCOUNTER → 2022-09-29 11:32 | Outpatient (BNVA) | payer MEDICARE, SELFPAY | PROVIDERS: PCP Physician Assistant; Referring Provider Physician Assistant; Visit Provider Surgery | DX: F17.210 Nicotine dependence, cigarettes, uncomplicated (principal); K46.9 Unspecified abdominal hernia without obstruction or gangrene | CPT/HCPCS: 99214 ==

== ENCOUNTER 2023-03-24 17:04 | Outpatient (CLI) | payer MEDICARE, SELFPAY ==
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
== END 2023-03-24 17:24 ==
LOC: DI 17:04
PROVIDERS: PCP Physician Assistant; Visit Provider Physician Assistant
DX: M18.12 Unilateral primary osteoarthritis of first carpometacarpal joint, left hand (principal); W19.XXXA Unspecified fall, initial encounter; M89.8X8 Other specified disorders of bone, other site
CPT/HCPCS: 73110

== ENCOUNTER 2023-06-01 08:11 | Outpatient (REF) | payer MEDICARE, SELFPAY ==
[2023-06-01 15:36] LABS: ALT 16 U/L (16-63); AST 24 U/L (15-37); Albumin 4.1 g/dL (3.4-5.0); Alkaline Phosphatase 70 U/L (46-116); Anion Gap 9.8 mmol/L (3-11); BUN 26 mg/dL (7-18); Bilirubin, Total 0.4 mg/dL (0.2-1.0); CO2 27.2 mmol/L (21.0-32.0); CREATININE 1.6 mg/dL (0.70-1.30); Calcium 9.4 mg/dL (8.5-10.1); Calculated LDL 95 mg/dL (<100); Chloride 104 mmol/L (98-107); Cholesterol 177 mg/dL (<200); Glucose 119 mg/dL (74-106); HDL Cholesterol 45 mg/dL (40-60); Potassium 4.8 mmol/L (3.5-5.1); Sodium 141 mmol/L (136-145); TSH 5.13 uIU/mL (0.36-3.74); Total Protein 7.8 g/dL (6.4-8.2); Triglyceride 189 mg/dL (<150)
[2023-06-02 09:56] LABS: Hepatitis C Ab w Rflx HCV PCR Negative (Negative)
[2023-06-02 09:59] LABS: HIV-1/2 Ag & Ab Screen Negative (Negative)
== END 2023-06-01 08:12 | disposition home or self-care (01) ==
LOC: NCHCN 08:11
PROVIDERS: PCP Physician Assistant; Visit Provider Physician Assistant
DX: E03.9 Hypothyroidism, unspecified (principal); Z11.3 Encounter for screening for infections with a predominantly sexual mode of transmission; Z11.4 Encounter for screening for human immunodeficiency virus [HIV]; I10 Essential (primary) hypertension; Z11.59 Encounter for screening for other viral diseases
CPT/HCPCS: 80053; 80061; 86803; 87389; 84443

== ENCOUNTER 2023-06-17 12:52 | Outpatient (REF) | payer MEDICARE, SELFPAY ==
[2023-06-20 13:39] LABS: Testosterone, Total 423 ng/dL (240-950)
== END 2023-06-17 12:53 | disposition home or self-care (01) ==
LOC: NCHCN 12:52
PROVIDERS: PCP Physician Assistant; Visit Provider Physician Assistant
DX: R53.83 Other fatigue (principal); E29.1 Testicular hypofunction
CPT/HCPCS: 84403

== ENCOUNTER → 2023-11-13 00:41 | Outpatient (CLI) | payer MEDICARE, SELFPAY ==
--- NOTE | 2023-11-13 | DI.CTLCSR_ITS ---
Exam(s) CT CHEST LUNG CANCER SCREEN EXAM: CT CHEST LUNG CANCER SCREEN CLINICAL HISTORY: SMOKER,SCREENING FOR LUNG CA,F17.210 TECHNIQUE: Imaging Protocol: Axial computed tomography images with coronal and sagittal reformatted images were created and reviewed. Low dose screening protocol. COMPARISON: CT CT CHEST LUNG CANCER SCREEN from 09/26/2022 FINDINGS: Tracheobronchial tree: No bronchiectasis or mucus plugging.. Mediastinum and Fely: No dominant adenopathy or fluid collection. Pulmonary parenchyma: No consolidation or dominant measurable mass. Moderate emphysematous changes. Interstitial changes. Lung Nodules: Stable nodules, at the right lower lobe, lingula and left lower lobe. Pleura: No effusion. No pneumothorax. In bilateral pleural plaques. Heart: The heart is not dilated. Moderate coronary artery calcifications are seen. Aorta: Ascending aorta 4.3 cm. Descending aorta 3.0 cm Upper abdomen: Unremarkable. Bones: Unremarkable for age. Soft Tissues: Unremarkable. IMPRESSION: Stable pulmonary nodules Lung RADS Cat 2 - Benign Appearance / Behavior: Nodules with a very low likelihood of becoming a clin ically active cancer due to size or lack of growth Lung-RADS 1.0 CATEGORIES: Category 0 - Prior chest CT exam(s) being located for comparison. Category 1 - Annual screening in 12 months. No nodules or definitely benign nodules. Category 2 - Annual screening in 12 months. Benign appearance. Nodules with low likelihood of becomin g active cancer. Category 3 - 6-month follow-up. Probably benign. Short-term follow-up suggested. Nodules with low lik elihood of becoming active cancer. Category 4A - 3-month follow-up and CT/PET if >8 mm in size. Suspicious finding. Findings which requi re additional testing. Category 4B - Findings which require additional testing and tissue sampling. Category 4X - Category 3 or 4 nodules with additional features or imaging findings that increases the suspicion of malignancy. Modifier S- Potentially clinically significant findings (non lung cancer) RADIATION DOSE DELIVERED: 84.96mGy.cm Total DLP DATA REPOSITORY: All CT scans at this facility are submitted to the National Radiology Data Registry (NRDR) Dose Index Registry (DIR) with the [employer] (ACR). RADIATION OPTIMIZATION: All CT scans at this facility use at least one of these dose optimization te chniques: automated exposure control; mA and/or kV adjustment per patient size (includes targeted exa ms where dose is matched to clinical indication); or iterative reconstruction.
== END ==
PROVIDERS: PCP Physician Assistant; Visit Provider Physician Assistant
DX: F17.210 Nicotine dependence, cigarettes, uncomplicated (principal); Z12.2 Encounter for screening for malignant neoplasm of respiratory organs; R91.1 Solitary pulmonary nodule
CPT/HCPCS: 71271

== ENCOUNTER 2023-11-24 16:16 | Outpatient (REF) | payer MEDICARE, SELFPAY ==
[2023-11-24 16:37] LABS: CREATININE 1.6 mg/dL (0.70-1.30)
== END 2023-11-24 16:17 | disposition home or self-care (01) ==
LOC: NCHCN 16:16
PROVIDERS: PCP Physician Assistant; Visit Provider Physician Assistant
DX: Z00.00 Encounter for general adult medical examination without abnormal findings (principal)
CPT/HCPCS: 82565

== ENCOUNTER 2024-02-01 11:05 | Outpatient (REF) | payer MEDICARE, SELFPAY ==
[2024-02-01 15:41] LABS: HCT 34.6 % (40.0-50.0); HGB 11.3 g/dL (13.5-17.5); MCHC 32.7 % (32.0-36.0); MCV 100 fL (80-95); MPV 10.5 fL (8.0-11.0); Platelet Count 274 10^3/uL (130-400); RBC 3.47 10^6/uL (4.36-5.78); RDW 13.4 % (11.8-14.1); RDW-SD 48.5 fL; WBC 6.99 10^3/uL (4.4-10.8)
[2024-02-01 15:48] LABS: MCH 32.6 pg (27.0-33.0)
[2024-02-01 16:02] LABS: ALT 19 U/L (16-63); AST 21 U/L (15-37); Alkaline Phosphatase 59 U/L (46-116); Anion Gap 11.3 mmol/L (3-11); BUN 25 mg/dL (7-18); Bilirubin, Total 0.7 mg/dL (0.2-1.0); CO2 24.7 mmol/L (21.0-32.0); CREATININE 1.5 mg/dL (0.70-1.30); Calcium 9.2 mg/dL (8.5-10.1); Calculated LDL 61 mg/dL (<100); Chloride 106 mmol/L (98-107); Cholesterol 138 mg/dL (<200); Estimated GFR 48.85 (mL/min/1.73m2); Glucose 98 mg/dL (74-106); HDL Cholesterol 49 mg/dL (40-60); Sodium 142 mmol/L (136-145); TSH 0.08 uIU/Ml (0.36-3.74); Total Protein 7.3 g/dL (6.4-8.2); Triglyceride 142 mg/dL (<150)
[2024-02-02 09:32] LABS: Prealbumin 28 mg/dL (20-40)
== END 2024-02-01 11:06 | disposition home or self-care (01) ==
LOC: NCHCN 11:05
PROVIDERS: PCP Physician Assistant; Visit Provider Physician Assistant
DX: E03.9 Hypothyroidism, unspecified (principal); Z01.818 Encounter for other preprocedural examination; E78.5 Hyperlipidemia, unspecified
CPT/HCPCS: 80053; 80061; 85027; 84134; 84443

== ENCOUNTER 2024-06-04 15:50 | Emergency (ER) | payer MEDICARE, SELFPAY ==
[2024-06-04 15:55] VITALS: BP 116/80; PULSE 84; RESP 16; TEMP 36.7; O2SAT 98
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
[2024-06-04 17:45] VITALS: O2SAT 96
== END 2024-06-04 17:59 | disposition home or self-care (01) ==
PROVIDERS: Emergency Provider Physician Assistant; PCP Physician Assistant
DX: L97.819 Non-pressure chronic ulcer of other part of right lower leg with unspecified severity (principal)
CPT/HCPCS: 99283

== ENCOUNTER 2024-07-05 18:06 | Outpatient (REF) | payer MEDICARE, SELFPAY ==
[2024-07-05 19:35] LABS: ALT 16 U/L (16-63); AST 24 U/L (15-37); Albumin 3.7 g/dL (3.4-5.0); Alkaline Phosphatase 110 U/L (46-116); Anion Gap 8.9 mmol/L (3-11); BUN 35 mg/dL (7-18); Bilirubin, Total 0.58 mg/dL (0.2-1.0); CO2 27.1 mmol/L (21.0-32.0); CREATININE 1.7 mg/dL (0.70-1.30); Calcium 9.9 mg/dL (8.5-10.1); Chloride 101 mmol/L (98-107); Estimated GFR 42.04 (mL/min/1.73m2); Glucose 100 mg/dL (74-106); Potassium 5.2 mmol/L (3.5-5.1); Sodium 137 mmol/L (136-145); TSH 0.49 uIU/Ml (0.36-3.74); Total Protein 7.3 g/dL (6.4-8.2)
[2024-07-05 19:52] LABS: HCT 33.4 % (40.0-50.0); HGB 10.5 g/dL (13.5-17.5); MCH 31.3 pg (27.0-33.0); MCV 100 fL (80-95); MPV 9.7 fL (8.0-11.0); Platelet Count 411 10^3/uL (130-400); RBC 3.35 10^6/uL (4.36-5.78); RDW 13.8 % (11.8-14.1); RDW-SD 50.4 fL; WBC 6.91 10^3/uL (4.4-10.8)
[2024-07-05 19:53] LABS: MCHC 31.4 % (32.0-36.0)
[2024-07-06 19:21] LABS: HIV-1/2 Ag & Ab Screen Negative (Negative)
[2024-07-06 19:24] LABS: Hepatitis C Ab w Rflx HCV PCR Negative (Negative)
== END 2024-07-05 18:07 | disposition home or self-care (01) ==
LOC: NCHCN 18:06
PROVIDERS: PCP Physician Assistant; Visit Provider Physician Assistant
DX: R63.4 Abnormal weight loss (principal); Z11.4 Encounter for screening for human immunodeficiency virus [HIV]; Z11.59 Encounter for screening for other viral diseases
CPT/HCPCS: 80053; 85027; 86803; 87389; 84443

== ENCOUNTER 2025-01-13 08:51 | Outpatient (CLI) | payer MEDICARE, SELFPAY ==
--- NOTE | 2025-01-13 | DI.CTLCSR_ITS ---
Exam(s) CT CHEST LUNG CANCER SCREEN EXAM: CT CHEST LUNG CANCER SCREEN CLINICAL HISTORY: Nicotine dependence, F17.210, cigarettes TECHNIQUE: Imaging Protocol: Axial computed tomography images with coronal and sagittal reformatted images were created and reviewed. Lung Computer Aided Detection (CAD) was utilized. COMPARISON: CT CT CHEST LUNG CANCER SCREEN from 08/15/[address] CHEST LUNG CANCER SCREEN from 09/26/[address] CHEST LUNG CANCER SCREEN from 11/13/2023 FINDINGS: Tracheobronchial tree: Patent where visualized. No bronchiectasis. Pulmonary parenchyma: There are calcified granulomas present. No architectural distortion. Lung Nodules: There are stable nodules in the lungs. The largest measures 6 mm and is located in the left lower lobe. There is a new nodular density in the right middle lobe measuring 4 mm (series 2, image 71). No focal consolidating infiltrates are seen. Pulmonary fibrosis is present. There is un changed thickening along the posterior pleura bilaterally. Mediastinum and Fely: No dominant adenopathy or fluid collection. The esophagus is unremarkable. Thyroid gland: Unremarkable. Lymph nodes: Unremarkable. Pleura: Stable pleural thickening posteriorly. No pneumothorax. No pleural effusion. Heart: The heart is not dilated. Three vessel coronary artery calcification is present. No pericardi al effusion. Aorta: Ascending thoracic aorta measures 3.5 cm. Atherosclerotic calcification is present. Upper abdomen: Unremarkable. Soft Tissues: Unremarkable. Bones: Within normal limits. There is now mild compression deformity of the superior endplate of T3. There is loss of of 10-20 percent of the height of the vertebral body anteriorly. No retropulsion i s seen. This was not present on the prior examination from 11/13/2023. IMPRESSION: 1. New 4 mm nodule in the right middle lobe. Otherwise stable pulmonary nodules. 2. New mild compression deformity of the superior endplate of T3. No retropulsion or central spinal canal stenosis. This is of indeterminate age. Follow-up as clinically appropriate. This may includ e an MRI of the thoracic spine. Lung RADS Cat 3S - Probably Benign: Probably benign finding(s) - short term follow-up suggested; incl ude nodules with a low likelihood of becoming a clinically active cancer. Other: Clinically Significa nt or Potentially Clinically Significant Findings (non lung cancer) Lung-RADS 1.0 CATEGORIES: Category 0 - Prior chest CT exam(s) being located for comparison. Category 1 - Annual screening in 12 months. No nodules or definitely benign nodules. Category 2 - Annual screening in 12 months. Benign appearance. Nodules with low likelihood of becomin g active cancer. Category 3 - 6-month follow-up. Probably benign. Short-term follow-up suggested. Nodules with low lik elihood of becoming active cancer. Category 4A - 3-month follow-up and CT/PET if >8 mm in size. Suspicious finding. Findings which requi re additional testing. Category 4B - Findings which require additional testing and tissue sampling. Suspicious finding. Category 4X - Category 3 or 4 nodules with additional features or imaging findings that increases the suspicion of malignancy. Modifier S- Potentially clinically significant finding. (Non lung cancer) Unexpected findings RADIATION DOSE DELIVERED: 28.8mGy.cm Total DLP 28.8mGy.cmTotal DLP DATA REPOSITORY: All CT scans at this facility are submitted to the National Radiology Data Registry (NRDR) Dose Index Registry (DIR) with the [employer] ([employer]). RADIATION OPTIMIZATION: All CT scans at this facility use at least one of these dose optimization te chniques: automated exposure control; mA and/or kV adjustment per patient size (includes targeted exa ms where dose is matched to clinical indication); or iterative reconstruction.
== END 2025-01-13 09:11 ==
LOC: DI 08:52
PROVIDERS: PCP Physician Assistant; Visit Provider Physician Assistant
DX: F17.210 Nicotine dependence, cigarettes, uncomplicated (principal); Z12.2 Encounter for screening for malignant neoplasm of respiratory organs
CPT/HCPCS: 71271

== ENCOUNTER → 2025-02-03 13:01 | Outpatient (BNVA) | payer MEDICARE, MEDICAID, SELFPAY | PROVIDERS: PCP Physician Assistant; Referring Provider Physician Assistant; Visit Provider Physical Therapy Assistant | DX: Z51.89 Encounter for other specified aftercare (principal); S81.802D Unspecified open wound, left lower leg, subsequent encounter; X58.XXXA Exposure to other specified factors, initial encounter | CPT/HCPCS: 99214; 99215 ==

== ENCOUNTER → 2025-02-15 09:37 | Outpatient (BNVA) | payer MEDICARE, MEDICAID, SELFPAY | PROVIDERS: PCP Physician Assistant; Referring Provider Physician Assistant; Visit Provider Physical Therapy Assistant | DX: S81.801D Unspecified open wound, right lower leg, subsequent encounter (principal); X58.XXXD Exposure to other specified factors, subsequent encounter; F17.210 Nicotine dependence, cigarettes, uncomplicated | CPT/HCPCS: 99213 ==

== ENCOUNTER 2025-02-24 10:34 | Outpatient (REF) | payer MEDICARE, SELFPAY | END 2025-02-24 10:35 | disposition home or self-care (01) | LOC: LBN 10:34 | PROVIDERS: PCP Physician Assistant; Referring Provider Physician Assistant; Visit Provider Physical Therapy Assistant | DX: Z51.89 Encounter for other specified aftercare (principal); B96.89 Other specified bacterial agents as the cause of diseases classified elsewhere | CPT/HCPCS: 87070; 87205 ==

== ENCOUNTER → 2025-03-03 09:59 | Outpatient (BNVA) | payer MEDICARE, MEDICAID, SELFPAY | PROVIDERS: PCP Physician Assistant; Referring Provider Physician Assistant; Visit Provider Physical Therapy Assistant | DX: Z51.89 Encounter for other specified aftercare (principal); L97.819 Non-pressure chronic ulcer of other part of right lower leg with unspecified severity | CPT/HCPCS: 99214 ==

== ENCOUNTER 2025-03-10 00:01 | Outpatient (CLI) | payer MEDICARE, SELFPAY ==
--- NOTE | 2025-03-10 | DI.DEXA_ITS ---
Exam(s) XR DEXA BONE DENSITY W/WO BOB EXAM: XR DEXA BONE DENSITY W/WO BOB CLINICAL HISTORY: Compression fx of thoracic vertebra, M48.54XA; T3 compression deformity TECHNIQUE: Routine DEXA evaluation of the lumbar spine, hip, or forearm. COMPARISON: No exams were available for comparison FINDINGS: Performed on a Hologic unit. Lateral image: Mild wedging of L1 vertebral body evident Lumbar Spine total T-score: -2.1 Hip total T-score:-1.0 Independent reading at the level of the femoral neck yields T-score of -1.4 Forearm total T-score: 1.6 IMPRESSION: Bone mineral density measures in the osteopenia range. Fracture risk is moderate. Note: Any spine fracture indicates 5x risk for subsequent spine fracture and 2x risk for subsequent h ip fracture. World Health Organization criteria for BMD interpretation classify patients: Normal...... T- Score at or above -1.0 Osteopenic... T- Score between -1.0 and -2.5 Osteoporosis... T-Score at or below -2.5
== END 2025-03-10 00:21 ==
LOC: DI 00:02
PROVIDERS: PCP Physician Assistant; Visit Provider Physician Assistant
DX: M48.54XA Collapsed vertebra, not elsewhere classified, thoracic region, initial encounter for fracture (principal); M85.89 Other specified disorders of bone density and structure, multiple sites
CPT/HCPCS: 77080

== ENCOUNTER 2025-04-07 12:23 | Outpatient (REF) | payer MEDICARE, SELFPAY ==
[2025-04-07 15:37] LABS: HGB 9.4 g/dL (13.5-17.5)
[2025-04-07 16:06] LABS: Anion Gap 8.4 mmol/L (3-11); BUN 15 mg/dL (7-18); CO2 28.6 mmol/L (21.0-32.0); CREATININE 1.3 mg/dL (0.70-1.30); Calcium 8.7 mg/dL (8.5-10.1); Chloride 102 mmol/L (98-107); Estimated GFR 57.65 (mL/min/1.73m2); Glucose 106 mg/dL (74-106); Sodium 139 mmol/L (136-145); TSH 0.99 uIU/mL (0.36-3.74)
[2025-04-07 16:12] LABS: MCH 31.1 pg (27.0-33.0); MCHC 30.5 % (32.0-36.0); MCV 102 fL (80-95); MPV 9.2 fL (8.0-11.0); Platelet Count 323 10^3/uL (130-400); RBC 3.02 10^6/uL (4.36-5.78); RDW 13.2 % (11.8-14.1); RDW-SD 49.2 fL; WBC 6.61 10^3/uL (4.4-10.8)
[2025-04-07 16:17] LABS: HCT 30.8 % (40.0-50.0)
== END 2025-04-07 12:24 | disposition home or self-care (01) ==
LOC: NCHCN 12:23
PROVIDERS: PCP Physician Assistant; Visit Provider Physician Assistant
DX: D64.9 Anemia, unspecified (principal); E03.9 Hypothyroidism, unspecified; I10 Essential (primary) hypertension; L98.499 Non-pressure chronic ulcer of skin of other sites with unspecified severity
CPT/HCPCS: 80048; 85027; 87077; 84443; 87070; 87186; 87205

== ENCOUNTER 2025-05-24 11:12 | Outpatient (RCR) | payer MEDICARE, MEDICAID, SELFPAY ==
[2025-05-24] MEDS: DALBAVANCIN 1,500 MG in DEXTROSE 5%-WATER 325 ML 650 MG IVPB (14:39)
[2025-05-24 14:53] LABS: Abs Immature Grans 0.01 10^3/uL (0.0-0.06); HCT 28.6 % (40.0-50.0); HGB 9.1 g/dL (13.5-17.5); Immature Grans % 0.2 %; MCH 31.9 pg (27.0-33.0); MCHC 31.8 % (32.0-36.0); MCV 100 fL (80-95); MPV 9.8 fL (8.0-11.0); Platelet Count 240 10^3/uL (130-400); RBC 2.85 10^6/uL (4.36-5.78); RDW 14.1 % (11.8-14.1); RDW-SD 49.9 fL; WBC 5.41 10^3/uL (4.4-10.8)
[2025-05-24 15:17] LABS: ALT 28 U/L (16-63); AST 34 U/L (15-37); Albumin 3.9 g/dL (3.4-5.0); Alkaline Phosphatase 72 U/L (46-116); Anion Gap 10.0 mmol/L (3-11); BUN 37 mg/dL (7-18); Bilirubin, Total 0.4 mg/dL (0.2-1.0); C-Reactive Protein 0.68 mg/dL (<or=0.5); CO2 23.0 mmol/L (21.0-32.0); Calcium 9.4 mg/dL (8.5-10.1); Chloride 103 mmol/L (98-107); Estimated GFR 34.38 (mL/min/1.73m2); Glucose 100 mg/dL (74-106); Potassium 5.5 mmol/L (3.5-5.1); Sodium 136 mmol/L (136-145); Total Protein 7.3 g/dL (6.4-8.2)
== END 2025-05-25 23:59 | disposition home or self-care (01) ==
LOC: INF 11:12
PROVIDERS: Internal Medicine Infectious Disease; PCP Physician Assistant; Visit Provider Family Medicine
DX: Z13.228 Encounter for screening for other metabolic disorders (principal); B95.61 Methicillin susceptible Staphylococcus aureus infection as the cause of diseases classified elsewhere
CPT/HCPCS: 36415; 80053; 87040; 96365; 85025; 86140; J0875

== ENCOUNTER 2025-05-26 22:50 | Outpatient (REF) | payer MEDICARE, MEDICAID, SELFPAY ==
[2025-05-26 15:25] LABS: C-Reactive Protein 0.67 mg/dL (<or=0.5)
== END 2025-05-26 22:51 | disposition home or self-care (01) ==
LOC: LBN 22:50
PROVIDERS: PCP Physician Assistant; Visit Provider Internal Medicine Infectious Disease
DX: I70.221 Atherosclerosis of native arteries of extremities with rest pain, right leg (principal)
CPT/HCPCS: 86140

== ENCOUNTER 2025-05-31 02:02 | Outpatient (RCR) | payer MEDICARE, MEDICAID, SELFPAY ==
[2025-05-31] MEDS: DALBAVANCIN 1,500 MG in DEXTROSE 5%-WATER 325 ML 650 MG IVPB (14:34)
[2025-05-31 15:37] LABS: Abs Immature Grans 0.01 10^3/uL (0.0-0.06); HCT 26.4 % (40.0-50.0); HGB 8.5 g/dL (13.5-17.5); Immature Grans % 0.2 %; MCH 32.7 pg (27.0-33.0); MCHC 32.2 % (32.0-36.0); MCV 102 fL (80-95); MPV 9.4 fL (8.0-11.0); Platelet Count 209 10^3/uL (130-400); RBC 2.60 10^6/uL (4.36-5.78); RDW 14.4 % (11.8-14.1); RDW-SD 51.8 fL; WBC 4.26 10^3/uL (4.4-10.8)
[2025-05-31 15:51] LABS: ALT 22 U/L (16-63); AST 25 U/L (15-37); Albumin 3.4 g/dL (3.4-5.0); Alkaline Phosphatase 65 U/L (46-116); Anion Gap 6.0 mmol/L (3-11); BUN 30 mg/dL (7-18); Bilirubin, Total 0.4 mg/dL (0.2-1.0); C-Reactive Protein 0.63 mg/dL (<or=0.5); CO2 28.0 mmol/L (21.0-32.0); Calcium 8.6 mg/dL (8.5-10.1); Chloride 102 mmol/L (98-107); Estimated GFR 57.65 (mL/min/1.73m2); Glucose 151 mg/dL (74-106); Potassium 4.6 mmol/L (3.5-5.1); Sodium 136 mmol/L (136-145); Total Protein 6.7 g/dL (6.4-8.2)
== END 2025-06-25 23:59 | disposition home or self-care (01) ==
LOC: INF 02:02
PROVIDERS: Internal Medicine Infectious Disease; PCP Physician Assistant; Visit Provider Family Medicine
DX: A49.01 Methicillin susceptible Staphylococcus aureus infection, unspecified site (principal)
CPT/HCPCS: 36415; 80053; 96365; 85025; 86140; J0875

== ENCOUNTER 2025-06-22 04:22 | Outpatient (CLI) | payer MEDICARE, SELFPAY ==
[2025-06-22 08:20] LABS: Abs Immature Grans 0.03 10^3/uL (0.0-0.06); HCT 28.8 % (40.0-50.0); HGB 8.9 g/dL (13.5-17.5); Immature Grans % 0.4 %; MCH 31.1 pg (27.0-33.0); MCHC 30.9 % (32.0-36.0); MCV 101 fL (80-95); MPV 8.7 fL (8.0-11.0); Platelet Count 279 10^3/uL (130-400); RBC 2.86 10^6/uL (4.36-5.78); RDW 15.1 % (11.8-14.1); RDW-SD 55.6 fL; WBC 8.13 10^3/uL (4.4-10.8)
[2025-06-22 08:49] LABS: ALT 18 U/L (16-63); AST 27 U/L (15-37); Albumin 3.8 g/dL (3.4-5.0); Alkaline Phosphatase 76 U/L (46-116); Anion Gap 4.0 mmol/L (3-11); BUN 23 mg/dL (7-18); Bilirubin, Total 0.4 mg/dL (0.2-1.0); C-Reactive Protein 1.23 mg/dL (<or=0.5); CO2 28.0 mmol/L (21.0-32.0); Calcium 9.3 mg/dL (8.5-10.1); Chloride 105 mmol/L (98-107); Estimated GFR 57.65 (mL/min/1.73m2); Glucose 113 mg/dL (74-106); Potassium 5.4 mmol/L (3.5-5.1); Sodium 137 mmol/L (136-145); Total Protein 7.3 g/dL (6.4-8.2)
[2025-06-22 08:53] LABS: Calculated LDL 67 mg/dL (<100); Cholesterol 128 mg/dL (<200); HDL Cholesterol 39 mg/dL (>or=40); Triglyceride 113 mg/dL (<150)
== END 2025-06-22 04:23 | disposition home or self-care (01) ==
LOC: LBO 04:22
PROVIDERS: Internal Medicine Infectious Disease; PCP Physician Assistant; Visit Provider Physician Assistant
DX: I70.221 Atherosclerosis of native arteries of extremities with rest pain, right leg (principal); E78.5 Hyperlipidemia, unspecified
CPT/HCPCS: 36415; 80053; 80061; 85025; 86140

== ENCOUNTER 2025-07-11 03:35 | Outpatient (CLI) | payer MEDICARE, MEDICAID, SELFPAY ==
--- NOTE | 2025-07-11 | DI.CT_ITS ---
Exam(s) CT CHEST WO EXAM: CT CHEST WO CLINICAL HISTORY: SOLITARY PULM NODULE R91.1 NEW NODULE 12/2024 LDCT. TECHNIQUE: Imaging protocol: Axial computed tomography images were obtained and coronal and sagittal reformatted images were created and reviewed. Lung Computer Aided Detection (CAD) was utilized. COMPARISON: CT CT CHEST LUNG CANCER SCREEN from 11/13/[address] CHEST LUNG CANCER SCREEN from 01/13/2025 FINDINGS: Tracheobronchial tree: Patent where visualized. No bronchiectasis is present. Pulmonary parenchyma: No consolidation or dominant measurable mass. Emphysematous changes are seen in the lungs. There also peripheral interstitial changes with honeycombing consistent with chronic fibrosis. There is stable pleural thickening posteriorly. There are several calcified granulomas present. There are stable noncalcified pulmonary nodules present. There are no new pulmonary nodules. Mediastinum and Fely: There are stable mediastinal lymph nodes. The esophagus is unremarkable. Thyroid gland: Unremarkable. Pleura: No effusion or pneumothorax. Heart: The heart is not dilated. Three vessel coronary artery calcification is present. No pericardial effusion. Aorta: The ascending thoracic aorta measures 4.6 x 4.6 cm. Atherosclerotic calcification is present. Upper abdomen: Unremarkable. Lymph nodes: There are stable axillary lymph nodes bilaterally. Soft tissues: Unremarkable. Bones:Within normal limits for the patient's age. There is stable mild compression of the superior endplate of T3. IMPRESSION: 1. Stable calcified and noncalcified pulmonary nodules. No new pulmonary nodules are present. 2. No acute pulmonary process. RADIATION DOSE DELIVERED: 209.01mGy.cm Total DLP 209.01mGy.cm Total DLP DATA REPOSITORY: All CT scans at this facility are submitted to the National Radiology Data Registry (NRDR) Dose Index Registry (DIR) with the [employer] (A[employer]). RADIATION OPTIMIZATION: All CT scans at this facility use at least one of these dose optimization techniques: automated exposure control; mA and/or kV adjustment per patient size (includes targeted exams where dose is matched to clinical indication); or iterative reconstruction.
== END 2025-07-11 03:55 ==
PROVIDERS: PCP Physician Assistant; Visit Provider Physician Assistant
DX: R91.1 Solitary pulmonary nodule (principal)
CPT/HCPCS: 71250

== ENCOUNTER 2025-07-13 00:19 | Outpatient (RCR) | payer MEDICARE, MEDICAID, SELFPAY ==
[2025-07-06] MEDS: DALBAVANCIN 1,500 MG in DEXTROSE 5%-WATER 325 ML 650 MG IVPB (13:35)
[2025-07-06 13:41] LABS: Abs Immature Grans 0.01 10^3/uL (0.0-0.06); HCT 27.5 % (40.0-50.0); HGB 8.8 g/dL (13.5-17.5); Immature Grans % 0.2 %; MCH 33.2 pg (27.0-33.0); MCHC 32.0 % (32.0-36.0); MCV 104 fL (80-95); MPV 9.3 fL (8.0-11.0); Platelet Count 288 10^3/uL (130-400); RBC 2.65 10^6/uL (4.36-5.78); RDW 15.3 % (11.8-14.1); RDW-SD 55.9 fL; WBC 6.02 10^3/uL (4.4-10.8)
[2025-07-06 14:00] LABS: ALT 20 U/L (16-63); AST 25 U/L (15-37); Albumin 3.8 g/dL (3.4-5.0); Alkaline Phosphatase 70 U/L (46-116); Anion Gap 8.4 mmol/L (3-11); BUN 22 mg/dL (7-18); Bilirubin, Total 0.4 mg/dL (0.2-1.0); C-Reactive Protein 0.77 mg/dL (<or=0.5); CO2 26.6 mmol/L (21.0-32.0); Calcium 9.5 mg/dL (8.5-10.1); Chloride 106 mmol/L (98-107); Estimated GFR 57.65 (mL/min/1.73m2); Glucose 111 mg/dL (74-106); Potassium 5.3 mmol/L (3.5-5.1); Sodium 141 mmol/L (136-145); Total Protein 7.5 g/dL (6.4-8.2)
[2025-07-13 13:36] LABS: Abs Immature Grans 0.01 10^3/uL (0.0-0.06); HCT 26.2 % (40.0-50.0); HGB 8.5 g/dL (13.5-17.5); Immature Grans % 0.2 %; MCH 33.7 pg (27.0-33.0); MCHC 32.4 % (32.0-36.0); MCV 104 fL (80-95); MPV 9.1 fL (8.0-11.0); Platelet Count 259 10^3/uL (130-400); RBC 2.52 10^6/uL (4.36-5.78); RDW 15.9 % (11.8-14.1); RDW-SD 53.3 fL; WBC 5.32 10^3/uL (4.4-10.8)
[2025-07-13 14:02] LABS: ALT 18 U/L (16-63); AST 21 U/L (15-37); Albumin 3.7 g/dL (3.4-5.0); Alkaline Phosphatase 69 U/L (46-116); Anion Gap 7.0 mmol/L (3-11); BUN 33 mg/dL (7-18); Bilirubin, Total 0.4 mg/dL (0.2-1.0); C-Reactive Protein 0.67 mg/dL (<or=0.5); CO2 27.0 mmol/L (21.0-32.0); Calcium 9.1 mg/dL (8.5-10.1); Chloride 102 mmol/L (98-107); Estimated GFR 48.55 (mL/min/1.73m2); Glucose 123 mg/dL (74-106); Potassium 5.1 mmol/L (3.5-5.1); Sodium 136 mmol/L (136-145); Total Protein 7.3 g/dL (6.4-8.2)
[2025-07-13] MEDS: DALBAVANCIN 1,500 MG in DEXTROSE 5%-WATER 325 ML 650 MG IVPB (14:08)
== END 2025-07-25 23:59 | disposition home or self-care (01) ==
LOC: INF 00:19
PROVIDERS: Internal Medicine Infectious Disease; PCP Physician Assistant; Visit Provider Family Medicine
DX: B95.8 Unspecified staphylococcus as the cause of diseases classified elsewhere (principal); S81.801A Unspecified open wound, right lower leg, initial encounter
CPT/HCPCS: 36415; 80053; 96365; 85025; 86140; J0875

== ENCOUNTER 2025-08-11 10:51 | Outpatient (CLI) | payer MEDICARE, SELFPAY ==
[2025-08-11 16:42] LABS: Abs Immature Grans 0.01 10^3/uL (0.0-0.06); HCT 29.6 % (40.0-50.0); HGB 9.0 g/dL (13.5-17.5); Immature Grans % 0.1 %; MCH 30.3 pg (27.0-33.0); MCHC 30.4 % (32.0-36.0); MCV 100 fL (80-95); MPV 8.8 fL (8.0-11.0); Platelet Count 240 10^3/uL (130-400); RBC 2.97 10^6/uL (4.36-5.78); RDW 14.2 % (11.8-14.1); RDW-SD 51.8 fL; WBC 7.05 10^3/uL (4.4-10.8)
[2025-08-11 17:27] LABS: ALT 19 U/L (16-63); AST 25 U/L (15-37); Albumin 3.3 g/dL (3.4-5.0); Alkaline Phosphatase 70 U/L (46-116); Anion Gap 7.2 mmol/L (3-11); BUN 24 mg/dL (7-18); Bilirubin, Total 0.5 mg/dL (0.2-1.0); C-Reactive Protein 1.28 mg/dL (<or=0.5); CO2 29.8 mmol/L (21.0-32.0); Calcium 8.8 mg/dL (8.5-10.1); Chloride 105 mmol/L (98-107); Glucose 105 mg/dL (74-106); Potassium 5.5 mmol/L (3.5-5.1); Sodium 142 mmol/L (136-145); Total Protein 7.1 g/dL (6.4-8.2)
== END 2025-08-11 10:52 | disposition home or self-care (01) ==
LOC: LBO 09-05 10:51
PROVIDERS: PCP Physician Assistant; Visit Provider Internal Medicine Infectious Disease
DX: B95.8 Unspecified staphylococcus as the cause of diseases classified elsewhere (principal); Z79.2 Long term (current) use of antibiotics
CPT/HCPCS: 36415; 80053; 85025; 86140

== ENCOUNTER → 2025-08-30 11:07 | Outpatient (BNVA) | payer MEDICARE, MEDICAID, SELFPAY | PROVIDERS: PCP Physician Assistant; Referring Provider Physician Assistant; Visit Provider Physical Therapy Assistant | DX: S81.801D Unspecified open wound, right lower leg, subsequent encounter (principal); X58.XXXD Exposure to other specified factors, subsequent encounter | CPT/HCPCS: 29580 ==

== ENCOUNTER → 2025-09-06 09:02 | Outpatient (BNVA) | payer MEDICARE, SELFPAY | PROVIDERS: PCP Physician Assistant; Referring Provider Physician Assistant; Visit Provider Surgery | DX: I87.391 Chronic venous hypertension (idiopathic) with other complications of right lower extremity (principal); I77.1 Stricture of artery; L98.499 Non-pressure chronic ulcer of skin of other sites with unspecified severity; F17.200 Nicotine dependence, unspecified, uncomplicated; Z98.890 Other specified postprocedural states | CPT/HCPCS: 99214 ==

== ENCOUNTER → 2025-09-13 10:17 | Outpatient (BNVA) | payer MEDICARE, SELFPAY | PROVIDERS: PCP Physician Assistant; Referring Provider Physician Assistant; Visit Provider Physical Therapy Assistant | DX: I87.391 Chronic venous hypertension (idiopathic) with other complications of right lower extremity (principal) | CPT/HCPCS: 97597; 29580 ==

== ENCOUNTER 2025-09-18 09:40 | Outpatient (CLI) | payer MEDICARE, SELFPAY ==
[2025-09-18 11:38] LABS: Abs Immature Grans 0.02 10^3/uL (0.0-0.06); HCT 32.5 % (40.0-50.0); HGB 9.9 g/dL (13.5-17.5); Immature Grans % 0.3 %; MCH 30.6 pg (27.0-33.0); MCHC 30.5 % (32.0-36.0); MCV 100 fL (80-95); MPV 8.8 fL (8.0-11.0); Platelet Count 280 10^3/uL (130-400); RBC 3.24 10^6/uL (4.36-5.78); RDW 14.3 % (11.8-14.1); RDW-SD 52.4 fL; WBC 5.96 10^3/uL (4.4-10.8)
[2025-09-18 12:31] LABS: C-Reactive Protein 0.91 mg/dL (<=0.50)
[2025-09-18 12:32] LABS: ALT 14 U/L (10-49); AST 27 U/L (<34); Albumin 4.5 g/dL (3.4-5.0); Alkaline Phosphatase 68 U/L (46-116); Anion Gap 7.6 mmol/L (3-11); BUN 28 mg/dL (9-23); Bilirubin, Total 0.50 mg/dL (0.2-1.2); CO2 25.4 mmol/L (20.0-31.0); Calcium 9.6 mg/dL (8.3-10.6); Chloride 106 mmol/L (98-107); Glucose 103 mg/dL (74-106); Potassium 5.1 mmol/L (3.5-5.1); Sodium 139 mmol/L (136-145); Total Protein 7.4 g/dL (5.7-8.2)
[2025-09-19 11:12] LABS: Iron 83 ug/dL (65-175)
== END 2025-09-18 09:41 | disposition home or self-care (01) ==
PROVIDERS: PCP Physician Assistant; Visit Provider Internal Medicine Infectious Disease
DX: Z79.2 Long term (current) use of antibiotics (principal); D64.9 Anemia, unspecified; B95.8 Unspecified staphylococcus as the cause of diseases classified elsewhere
CPT/HCPCS: 36415; 80053; 83540; 85025; 86140

== ENCOUNTER → 2025-09-19 08:33 | Outpatient (BNVA) | payer MEDICARE, SELFPAY | PROVIDERS: PCP Physician Assistant; Referring Provider Physician Assistant; Visit Provider Student in an Organized Health Care Education/Training Program | DX: Z51.89 Encounter for other specified aftercare (principal); I77.1 Stricture of artery; L98.499 Non-pressure chronic ulcer of skin of other sites with unspecified severity | CPT/HCPCS: 99213 ==

== ENCOUNTER 2025-09-20 16:05 | Outpatient (REF) | payer MEDICARE, MEDICAID, SELFPAY ==
[2025-09-25 12:45] LABS: Syphilis Serology (RPR) Negative (Negative)
== END 2025-09-20 16:06 | disposition home or self-care (01) ==
LOC: LBN 16:05
PROVIDERS: PCP Physician Assistant; Visit Provider Internal Medicine Infectious Disease
DX: R21 Rash and other nonspecific skin eruption (principal)
CPT/HCPCS: 86592

== ENCOUNTER → 2025-09-27 11:16 | Outpatient (BNVA) | payer MEDICARE, MEDICAID, SELFPAY | PROVIDERS: PCP Physician Assistant; Referring Provider Physician Assistant; Visit Provider Physical Therapy Assistant | DX: Z51.89 Encounter for other specified aftercare (principal); L97.818 Non-pressure chronic ulcer of other part of right lower leg with other specified severity; I77.1 Stricture of artery | CPT/HCPCS: 29580 ==

== ENCOUNTER → 2025-10-11 10:34 | Outpatient (BNVA) | payer MEDICARE, MEDICAID, SELFPAY | PROVIDERS: PCP Physician Assistant; Referring Provider Physician Assistant; Visit Provider Surgery | DX: Z51.89 Encounter for other specified aftercare (principal); I77.1 Stricture of artery; L98.499 Non-pressure chronic ulcer of skin of other sites with unspecified severity; I87.391 Chronic venous hypertension (idiopathic) with other complications of right lower extremity; I73.9 Peripheral vascular disease, unspecified | CPT/HCPCS: 99214 ==

== ENCOUNTER → 2025-10-25 10:30 | Outpatient (BNVA) | payer MEDICARE, MEDICAID, SELFPAY | PROVIDERS: PCP Physician Assistant; Referring Provider Physician Assistant; Visit Provider Surgery | DX: Z51.89 Encounter for other specified aftercare (principal); L97.819 Non-pressure chronic ulcer of other part of right lower leg with unspecified severity; I87.391 Chronic venous hypertension (idiopathic) with other complications of right lower extremity | CPT/HCPCS: 29580 ==